=== PATIENT | female | born 1940 | race Caucasian/White ===

== ENCOUNTER 2020-02-17 17:32 | Inpatient (IN) | payer MEDICARE, OTHER ==
[~2020-02-17] VITALS: Ht 157.5 cm; Wt 74.8 kg
[2020-02-17] MEDS ORDERED: TIMO5DRO35 EACHEYE (18:55)
[2020-02-17] MEDS ORDERED: UNK CHOLESTEROL PO (18:55)
[2020-02-17] MEDS ORDERED: LOSA25TA27 PO (18:55)
[2020-02-17] MEDS ORDERED: GABA300C PO (18:55)
[2020-02-17] MEDS ORDERED: ZOLPIDEM TARTRATE 5 MG TABLET PO PRN (22:00)
[2020-02-17] MEDS ORDERED: MAGNESIUM HYDROXIDE 30 ML UDC PO PRN (22:00)
--- NOTE | 2020-02-17 22:00 | NUR ---
GPS AIRLINE CUSTOMER SERVICE AGENT NOTES: ADMITTED A 79YO BULGARIAN SPEAKING FEMALE FROM THE ED ON 5150 HOLD FOR GRAVE DISABILITY. PATIENT CAME FROM A PREVIOUS [facility]- [employer] PRIOR TO THIS ED VISIT. PER HOLD, PATIENT REFUSED TO LEAVE MD OFFICE, AND THAT SHE WAS MAKING BIZARRE DELUSIONAL STATEMENTS. PATIENT IS UNDER THE CARE OF DR. CHOW, AND ANN URBINA FOR PSYCH AND MEDICAL DOCTORS RESPECTIVELY. UPON FACE TO FACE ASSESSMENT, PATIENT PRESENTS ALERT AND ORIENTED X3,,DENIES ANY PAIN, NO RESPIRATORY DISTRESS. PATIENT REFUSED HOWEVER TO DO THOROUGH SKIN ASSESSMENT, SHE ALSO REFUSED FACE PHOTO. WHEN ASKED TO STAY IN BED, PATIENT REFUSED TO LET GO OF HER OWN WALKER. PATIENT THEN INFORMED OF THE UNIT RULES AND POLICIES REGARDING THE PSYCH UNIT. PATIENT PROVIDED WITH GUIDE TO PRESCRIPTIONS MEDICATIONS AND PATIENT'S,RIGHTS HANDBOOK. CARE PLAN INITIATED. Q15 MIN CHECKS STARTED. VITAL SIGNS TAKEN AND RECORDED. PATIENT'S ADMISSION ASSESSMENTS WERE VERY LIMITED PATIENT WAS VERY UNCOOPERATIVE WITH STAFF. PATIENT EXPLAINED OF PROTOCOLS AND PROCEDURE, PATIENT RESPONDS RIGHT AWAY WITH "NO,NO,NO!" BELONGINGS AND CONTRABAND CHECKED. WILL MONITOR PATIENT FOR MOOD SAFETY AND BEHAVIOR.
[2020-02-17] MEDS ORDERED: IBUP-23 PO (22:07)
[2020-02-17] MEDS ORDERED: NITR100C6 PO (22:09)
[2020-02-17] MEDS ORDERED: OLAN2.5T3 PO (22:11)
[2020-02-17] MEDS ORDERED: BLOOD SUGAR DIAGNOSTIC 1 EACH STRIP IN ONE (23:00)
--- NOTE | 2020-02-17 23:29 | NUR ---
GPS RN NOTE, PATIENT NEEDS A MEDICATION RECONCILIATION APPROVED. PAGED [facility] AND INFORMED DR ALIDA CABRAL OF FINDINGS. DR ALIDA CABRAL STATED, " MY INTERNET IS NOT WORKING IF IT STARTS WORKING AGAIN I WILL APPROVE THE MEDICATION RECONCILIATION ". ALL ORDERS NOTED AND CARRIED OUT WILL CONTINUE TO MONITOR THIS PATIENT WITH THE HELP OF STAFF.
[2020-02-18] MEDS: ACETAMINOPHEN 325 MG TABLET PO PRN ×3 (04:02→20:31)
[2020-02-18] MEDS: LORAZEPAM 1 MG TABLET PO PRN ×2 (04:08→12:57)
--- NOTE | 2020-02-18 04:13 | NUR ---
NURSES NOTES: PATIENT COMPLAINED OF RIGHT KNEE PAIN PAIN, REQUESTED FOR TYLENOL MEDICATION- TYLENOL 65O MG GIVEN PO ORDERED. PATIENT ALSO COMPLAINED OF BEING ANXIOUS. ATIVAN 1 MG GIVEN ORALLY PRN ORDER. WILL MONITOR PATIENT'S PAIN AND THE EFFICACY OF MEDICATION WELL.
[2020-02-18 07:07] LABS: BASOPHILS % (AUTO) 0.6 % (0.0-2.0); EOSINOPHILS % (AUTO) 1.1 % (0.0-6.0); HEMATOCRIT 39 % (33-45); HEMOGLOBIN 12.8 g/dL (11.5-14.8); LYMPHOCYTES # (AUTO) 1.4 /CMM (0.8-4.8); LYMPHOCYTES % (AUTO) 20.4 % (20.0-44.0); MEAN CORPUSCULAR HGB CONC 33 g/dl (31.0-36.0); MEAN CORPUSCULAR VOLUME 90 fL (82-100); MONOCYTES # (AUTO) 0.7 /CMM (0.1-1.30); MONOCYTES % (AUTO) 9.3 % (2.0-12.0); NEUTROPHILS # (AUTO) 4.8 /CMM (1.8-8.9); NEUTROPHILS % (AUTO) 68.6 % (43.0-81.0); PLATELET COUNT (AUTO) 373 /CMM (150-450); RED BLOOD CELL COUNT(AUTO) 4.34 MIL/uL (4.0-5.2)
[2020-02-18 08:00] VITALS: BP 155/85
[2020-02-18 08:19] LABS: BILIRUBIN,TOTAL 0.3 mg/dL (0.2-1.0); CALCIUM, SERUM 8.7 mg/dL (8.5-10.1); CREATININE 0.7 mg/dL (0.6-1.3); TOTAL PROTEIN, SERUM 6.8 g/dL (6.4-8.2)
[2020-02-18 16:00] VITALS: BP 154/96
[2020-02-18] MEDS: TIMOLOL 0.5% SOLN OPHTH 5 ML BOTTLE EACHEYE SCH (17:00)
[2020-02-18 20:14] VITALS: BP 141/90
--- NOTE | 2020-02-18 20:33 | NUR ---
GPS RN NOTE: PAIN PT. C/O OF EAR PAIN. ADMINISTERED TYLENOL 650 MG PO PRN ORDERED. WILL CONTINUE TO MONITOR FOR SAFETY AND BEHAVIOR.
[2020-02-18] MEDS: risperiDONE 0.25 MG TABLET PO SCH (21:20)
[2020-02-19] MEDS: LORAZEPAM 1 MG TABLET PO PRN (04:39)
--- NOTE | 2020-02-19 04:42 | NUR ---
GPS RN NOTE: ANXIETY PT. C/O OF BEING ANXIOUS. ADMINISTERED ATIVAN 1MG PO PRN ORDERED. WILL CONTINUE TO MONITOR FOR SAFETY AND BEHAVIOR.
[2020-02-19 08:00] VITALS: BP 145/95
[2020-02-19] MEDS: risperiDONE 0.25 MG TABLET PO SCH ×3 (08:40→21:24)
[2020-02-19] MEDS: LOSARTAN POTASSIUM 25 MG TABLET PO SCH (08:40)
[2020-02-19] MEDS: TIMOLOL 0.5% SOLN OPHTH 5 ML BOTTLE EACHEYE SCH ×2 (08:41→16:57)
[2020-02-19 16:00] VITALS: BP 111/66
[2020-02-19 19:49] VITALS: BP 121/80
[2020-02-19 20:31] VITALS: BP 121/60
[2020-02-19] MEDS: ACETAMINOPHEN 325 MG TABLET PO PRN (21:24)
--- NOTE | 2020-02-20 05:01 | NUR ---
CLOSING NOTES: Slept 8 hours tonight. Verbalizes her needs. C/O pain right knee requested tylenol and this was effective for relief. She commented that the Doctors don't help her with thw right knee pain. She is calm and quiet. She refused Reseradol last night
[2020-02-20 08:00] VITALS: BP 125/82
[2020-02-20] MEDS: LOSARTAN POTASSIUM 25 MG TABLET PO SCH (08:46)
[2020-02-20] MEDS: TIMOLOL 0.5% SOLN OPHTH 5 ML BOTTLE EACHEYE SCH ×2 (08:46→17:13)
[2020-02-20] MEDS: risperiDONE 0.25 MG TABLET PO SCH (08:47)
--- NOTE | 2020-02-20 08:48 | NUR ---
RN NOTE: MEDICATION REFUSAL PT REFUSED AM RISPERDAL. EDUCATED PT RE IMPORTANCE OF MEDICATION COMPLIANCE. PT CONT'D TO REFUSE X 3.
--- NOTE | 2020-02-20 12:06 | NUR ---
INITIAL DISCHARGE PLAN: Pt wishes to return home to [address] [place] [address] [address] [place] SW is unable to confirm if pt is able to return. SW will help form a safe and proper discharge in collaboration with .
[2020-02-20] MEDS: ACETAMINOPHEN 325 MG TABLET PO PRN (15:13)
--- NOTE | 2020-02-20 15:13 | NUR ---
RN NOTE: PAIN PT C/O 08/01 HEADACHE. REQUESTING TYLENOL 650 MG PO PRN.
--- NOTE | 2020-02-20 15:52 | NUR ---
INDIVIDUAL INTERVENTION: SW met with pt at bedside to discuss her medication compliance. Pts insight and judgement is impaired and does not have insight into her mental illness. Pt refuses to take her medication until she is given pain medication. Pt is paranoid and delusional and requires constant redirection.
[2020-02-20 16:00] VITALS: BP 118/66
[2020-02-20 19:41] VITALS: BP 139/63
[2020-02-20] MEDS: QUETIAPINE FUMARATE 25 MG TABLET PO SCH (21:14)
[2020-02-20] MEDS: MAG HYDROX/AL HYDROX/SIMETH 30 ML UDC PO PRN (21:29)
[2020-02-20 22:30] VITALS: BP 130/68
--- NOTE | 2020-02-21 06:03 | NUR ---
GPS RN NOTES: PT. RESTING IN HER ROOM, NO S/S OF DISTRESS NOTED . PT. CALM UNCOOPERTIVE, PARANOID ,DISORGNIZED NEEDY DENENDING, NOT FOLLOWING ANY REDIRECTIONS NO CHANGE OF CONDITION NOTED , ALL CARE NEEDS MET ANTICIPATED. WILL CONTINUE TO MONITOR FOR SAFETY BEHAVIOR, AND ENDORSE TO AM SHIFT FOR CONTINUITY OF CARE.
[2020-02-21] MEDS: ACETAMINOPHEN 325 MG TABLET PO PRN ×2 (06:24→22:57)
[2020-02-21] MEDS: LOSARTAN POTASSIUM 25 MG TABLET PO SCH (08:37)
[2020-02-21 09:07] VITALS: BP 100/67
[2020-02-21] MEDS: TIMOLOL 0.5% SOLN OPHTH 5 ML BOTTLE EACHEYE SCH ×2 (09:13→16:37)
--- NOTE | 2020-02-21 11:02 | NUR ---
FAMILY CONTACT: SW contacted pts daughter Patricia ([phone]) for discharge planning and left a voicemail for callback.
--- NOTE | 2020-02-21 12:10 | NUR ---
FAMILY CONTACT: SW received a call from pts daughter Patricia ([phone]) who confirmed pts discharge plan back home and stated she would be available to pick pt up once stable or discharge.
[2020-02-21 16:00] VITALS: BP 138/73
[2020-02-21 19:32] VITALS: BP 161/74
[2020-02-21] MEDS: QUETIAPINE FUMARATE 25 MG TABLET PO SCH (21:21)
--- NOTE | 2020-02-21 21:49 | NUR ---
GPS RN NOTES: AT 0 PT REPORTED SHE HAS NOT HAD A BOWEL MOVEMENT FOR A DAY AND REQUESTED FOR MOM. MOM 1CUP/30ML GIVEN PO PRN ORDERED. WILL CONTINUE TO MONITOR.
--- NOTE | 2020-02-22 06:38 | NUR ---
GPS RN CLOSING NOTES: PT AWAKE, ALERT AND ORIENTED X2. PT SLEPT FOR 3HRS THIS SHIFT. NO S/S OF DISTRESS. RESPIRATION EVEN AND UNLABORED WITH EQUAL RISE AND FALL OF THE CHEST. ALL PT CARE NEEDS MET ANTICIPATED. WILL CONTINUE TO MONITOR AND ENDORSE TO AM SHIFT.
[2020-02-22 08:00] VITALS: BP 150/98
--- NOTE | 2020-02-22 08:00 | NUR ---
CRYING AND C/OF MOUTH AND CHEST PAIN,DOES HAVE HX OF GERD.WALKING ABOUT IN RM.
[2020-02-22] MEDS: TIMOLOL 0.5% SOLN OPHTH 5 ML BOTTLE EACHEYE SCH ×2 (08:10→17:00)
[2020-02-22] MEDS: ACETAMINOPHEN 325 MG TABLET PO PRN (08:10)
[2020-02-22] MEDS: LOSARTAN POTASSIUM 25 MG TABLET PO SCH (08:10)
[2020-02-22] MEDS: MAG HYDROX/AL HYDROX/SIMETH 30 ML UDC PO PRN (08:11)
--- NOTE | 2020-02-22 08:11 | NUR ---
GIVEN MAALOX,TYLENOL FOR DISCOMFORT.
--- NOTE | 2020-02-22 08:30 | NUR ---
ekg ordered,dr. aparicio aware of pt. status and the fact that ekg ordered.
--- NOTE | 2020-02-22 09:30 | NUR ---
copy of ekg sent to dr. aparicio.
[2020-02-22] MEDS: GABAPENTIN 100 MG CAPSULE PO SCH ×3 (11:44→18:07)
--- NOTE | 2020-02-22 14:15 | NUR ---
crying out and requesting ativan,informed ativan not ordered,call out to dr. segura.
[2020-02-22 16:00] VITALS: BP 155/88
--- NOTE | 2020-02-22 18:30 | NUR ---
VERY NEEDY AND OUT AT DESK WITH REQUESTS ABRAHAM.
[2020-02-22 19:58] VITALS: BP 121/68
[2020-02-22] MEDS: QUETIAPINE FUMARATE 25 MG TABLET PO SCH (21:09)
[2020-02-23 08:00] VITALS: BP 147/82
[2020-02-23] MEDS: GABAPENTIN 100 MG CAPSULE PO SCH ×3 (08:07→16:53)
[2020-02-23] MEDS: LOSARTAN POTASSIUM 25 MG TABLET PO SCH (08:07)
[2020-02-23] MEDS: TIMOLOL 0.5% SOLN OPHTH 5 ML BOTTLE EACHEYE SCH ×2 (08:08→16:53)
--- NOTE | 2020-02-23 11:00 | NUR ---
INDIVIDUAL INTERVENTION WITH MD: ALMA and MD met with pt to discuss current symptoms and discharge plan. Pt presents disorganized, delusional, and paranoia and focused on pain medication. Pt was unable to properly answer MD questions due to her paranoia and fixed delusional thoughts.
--- NOTE | 2020-02-23 11:23 | NUR ---
FAMILY CONTACT: ALMA contacted pts daughter Patricia ([phone]) to inform her pt will be discharged on Thursday02/25/20. Daughter agrees with discharge plan and stated she will be picking pt up and transporting home at 11:00am.
[2020-02-23] MEDS: LORAZEPAM 1 MG TABLET PO PRN ×2 (12:08→21:22)
[2020-02-23 16:00] VITALS: BP 124/69
[2020-02-23 20:01] VITALS: BP 130/70
[2020-02-23] MEDS: GUAIFENESIN/D-METHORPHAN HB 5 ML UDC PO PRN (20:42)
[2020-02-23] MEDS: QUETIAPINE FUMARATE 25 MG TABLET PO SCH (22:22)
[2020-02-24 08:00] VITALS: BP 126/79
--- NOTE | 2020-02-24 08:30 | NUR ---
INDIVIDUAL INTERVENTION WITH MD: ALMA and met with pt to discuss current symptoms and discharge plan. Pt presents disorganized, delusional, and paranoia and focused on having an infection all over her body. Pt was rambling and refused to be redirected. MD cancelled pts discharge for tomorrow.
[2020-02-24] MEDS: TIMOLOL 0.5% SOLN OPHTH 5 ML BOTTLE EACHEYE SCH ×2 (08:42→16:50)
[2020-02-24] MEDS: GABAPENTIN 100 MG CAPSULE PO SCH ×3 (08:43→16:49)
[2020-02-24] MEDS: LOSARTAN POTASSIUM 25 MG TABLET PO SCH (08:43)
--- NOTE | 2020-02-24 09:09 | NUR ---
FAMILY CONTACT: SW contacted pts daughter Patricia ([phone]) to inform her pts discharge has been cancelled due to pt remaining paranoid and delusional. SW informed her that MD increased pts antipsychotic. Daughter agreed with treatment plan.
[2020-02-24] MEDS: LORAZEPAM 1 MG TABLET PO PRN ×2 (09:15→17:33)
--- NOTE | 2020-02-24 09:19 | NUR ---
ALMA COORDINATION OF CARE: ALMA contacted [facility] Address: [address] [place] [address] and spoke with the inkjet operator who stated they currently are completely booked and will not have appointments until next month. ALMA scheduled an appointment for March at 11:00am.
--- NOTE | 2020-02-24 09:24 | NUR ---
ALMA COORDINATION OF CARE: SW contacted [facility] Address: [address] [place] [address] and scheduled an appointment for pt on Saturday March 14, 2020.
--- NOTE | 2020-02-24 13:43 | NUR ---
GROUP THERAPY: SW encouraged pt to attend group therapy, pt is unable to participate due to pt presenting disorganized, delusional, and paranoid and focused on having an infection all over her body. Pt was rambling and refused to be redirected
--- NOTE | 2020-02-24 15:31 | NUR ---
GPS/RN ATIVAN 1MG PO ADMINISTERED FOR ANXIETY. DR CHOW AWARE THAT PT HAS ANXIETY EPISODE Addendum: 02/24/20 at 1533 by ABIGAIL EDWARDS RN THIS THIS THE NOTE FOR 0915AM
[2020-02-24 16:09] VITALS: BP 134/80
[2020-02-24] MEDS: GUAIFENESIN/D-METHORPHAN HB 5 ML UDC PO PRN (19:46)
[2020-02-24 20:06] VITALS: BP 138/85
[2020-02-24] MEDS: QUETIAPINE FUMARATE 25 MG TABLET PO SCH (21:14)
[2020-02-25 08:00] VITALS: BP 139/67
[2020-02-25] MEDS: GABAPENTIN 100 MG CAPSULE PO SCH ×3 (08:39→17:23)
[2020-02-25] MEDS: TIMOLOL 0.5% SOLN OPHTH 5 ML BOTTLE EACHEYE SCH ×2 (08:40→17:23)
[2020-02-25] MEDS: LOSARTAN POTASSIUM 25 MG TABLET PO SCH (08:40)
[2020-02-25] MEDS: LORAZEPAM 1 MG TABLET PO PRN ×2 (10:22→19:48)
[2020-02-25] MEDS: ACETAMINOPHEN 325 MG TABLET PO PRN ×2 (10:22→16:48)
[2020-02-25] MEDS: MAG HYDROX/AL HYDROX/SIMETH 30 ML UDC PO PRN ×2 (10:22→16:47)
--- NOTE | 2020-02-25 10:34 | NUR ---
given maalox,ativan and tylenol for nervousness and pain.
--- NOTE | 2020-02-25 11:08 | NUR ---
Dr. Ring made rounds and ordered Ibuprofen 400 mg q6hr prn for pain. [facility] unable to place the order due pt. is allergy to Celecoxib. Called the doctor and left a message and awaiting for the call back.
[2020-02-25 16:00] VITALS: BP 140/70
[2020-02-25] MEDS: GUAIFENESIN/D-METHORPHAN HB 5 ML UDC PO PRN (16:47)
--- NOTE | 2020-02-25 17:00 | NUR ---
C/O COUGH,PAIN AND INDIGESTION.TYLENOL.MAALOX AND ROBITUSSIN GIVEN.
--- NOTE | 2020-02-25 19:49 | NUR ---
RN NOTES : ANXIETY PT. C/O FEELING ANXIOUS PARANOID, PACING IN ROOM ,ASKING FOR ATIVAN , ATIVAN 1 MG PO PRN GIVEN PER PT. REQUEST, WILL CONTINUE TO MONITOR.
[2020-02-25 20:06] VITALS: BP 147/94
[2020-02-25] MEDS: QUETIAPINE FUMARATE 25 MG TABLET PO SCH (21:19)
[2020-02-26] MEDS: ACETAMINOPHEN 325 MG TABLET PO PRN ×2 (05:01→23:04)
[2020-02-26] MEDS: LORAZEPAM 1 MG TABLET PO PRN ×3 (06:29→22:40)
--- NOTE | 2020-02-26 06:31 | NUR ---
RN NOTES : ANXIETY PT. C/O FEELING ANXIOUS PARANOID, NON REDIRECTABLE, ASKING FOR ATIVAN , ATIVAN 1 MG PO PRN GIVEN PER PT. REQUEST, WILL CONTINUE TO MONITOR.
--- NOTE | 2020-02-26 06:52 | NUR ---
GPS RN NOTES: PT. RESTING IN HER ROOM, NO S/S OF DISTRESS NOTED . PT. UNCOOPERTIVE, PARANOID ,DISORGNIZED NEEDY DENENDING , NO CHANGE OF CONDITION NOTED , ALL CARE NEEDS MET ANTICIPATED. WILL CONTINUE TO MONITOR FOR SAFETY BEHAVIOR, AND ENDORSE TO AM SHIFT FOR CONTINUITY OF CARE.
[2020-02-26 07:18] LABS: BASOPHILS % (AUTO) 0.4 % (0.0-2.0); EOSINOPHILS % (AUTO) 3.2 % (0.0-6.0); HEMATOCRIT 40 % (33-45); LYMPHOCYTES # (AUTO) 1.1 /CMM (0.8-4.8); LYMPHOCYTES % (AUTO) 20.7 % (20.0-44.0); MEAN CORPUSCULAR HGB CONC 33 g/dl (31.0-36.0); MEAN CORPUSCULAR VOLUME 90 fL (82-100); MONOCYTES # (AUTO) 0.5 /CMM (0.1-1.30); MONOCYTES % (AUTO) 9.3 % (2.0-12.0); NEUTROPHILS # (AUTO) 3.5 /CMM (1.8-8.9); NEUTROPHILS % (AUTO) 66.4 % (43.0-81.0); PLATELET COUNT (AUTO) 338 /CMM (150-450); RED BLOOD CELL COUNT(AUTO) 4.42 MIL/uL (4.0-5.2); WHITE BLOOD COUNT (AUTO) 5.3 K/uL (4.3-11.0)
[2020-02-26 08:00] VITALS: BP 148/90
[2020-02-26] MEDS: GABAPENTIN 100 MG CAPSULE PO SCH ×3 (08:07→16:55)
[2020-02-26] MEDS: TIMOLOL 0.5% SOLN OPHTH 5 ML BOTTLE EACHEYE SCH ×2 (08:07→17:02)
[2020-02-26] MEDS: LOSARTAN POTASSIUM 25 MG TABLET PO SCH (08:09)
[2020-02-26 08:50] LABS: BILIRUBIN,TOTAL 0.3 mg/dL (0.2-1.0); CREATININE 0.8 mg/dL (0.6-1.3); MAGNESIUM 2.4 mg/dL (1.8-2.4); TOTAL PROTEIN, SERUM 6.7 g/dL (6.4-8.2)
--- NOTE | 2020-02-26 14:40 | NUR ---
GPS/RN ATIVAN 1MG PO GIVEN PER DR KERNS ORDER
[2020-02-26 16:00] VITALS: BP 137/80
[2020-02-26 20:37] VITALS: BP 130/69
[2020-02-26] MEDS: QUETIAPINE FUMARATE 25 MG TABLET PO SCH (21:32)
--- NOTE | 2020-02-26 22:41 | NUR ---
Pt c/o anxiety and insomnia. Requesting Ativan PRN. Least restrictive measures ineffective. Ativan 1 mg po prn given as ordered. Will continue to monitor.
--- NOTE | 2020-02-26 23:05 | NUR ---
Pt c/o of generalized body pain 08/01. Tylenol 650 mg po prn given as ordered. Will continue to monitor.
--- NOTE | 2020-02-26 23:41 | NUR ---
Ativan effective. Post 1 hour pt asleep in bed easy to arouse. Will continue to monitor.
--- NOTE | 2020-02-27 00:06 | NUR ---
Post 1 hour Tylenol effective. VA 0/10. Pt asleep in bed easy to arouse. Will continue to monitor.
[2020-02-27] MEDS: ACETAMINOPHEN 325 MG TABLET PO PRN (05:14)
--- NOTE | 2020-02-27 05:19 | NUR ---
Pt c/o generalized body pain 08/01. Tylenol 650 mg po prn given as ordered. Will continue to monitor.
--- NOTE | 2020-02-27 06:23 | NUR ---
Post 1 hr tylenol effective. Pt asleep easy to arouse. DC 0/10. Will continue to monitor.
[2020-02-27 08:00] VITALS: BP 111/92
[2020-02-27] MEDS: GABAPENTIN 100 MG CAPSULE PO SCH ×3 (08:55→17:46)
[2020-02-27] MEDS: LOSARTAN POTASSIUM 25 MG TABLET PO SCH (08:56)
[2020-02-27] MEDS: TIMOLOL 0.5% SOLN OPHTH 5 ML BOTTLE EACHEYE SCH ×2 (08:56→17:51)
--- NOTE | 2020-02-27 10:11 | NUR ---
This SW recieved a voicemail from patient's son. Patient's son did not leave name but left call back number . This SW informed SW Luz about voicemail and played voice message to her. SW called patient's son to provide name but was unable to speak to him, SW left a message.
--- NOTE | 2020-02-27 12:47 | NUR ---
Patient's Son Barry gave this SW a call back. This SW informed him that ALMA Escobar would speak with him regarding mother's current developments.
--- NOTE | 2020-02-27 14:32 | NUR ---
ALMA FAMILY CONTACT: ALMA received information from Vanessa MARQUEZ regarding patient's Son Barry ([phone]) wanting to speak to the social sciences department chair. This policy writer called and left a voicemail for Barry to return this phone call.
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
[2020-02-27 16:00] VITALS: BP 113/73
[2020-02-27 19:39] VITALS: BP 128/76
[2020-02-27] MEDS: QUETIAPINE FUMARATE 100 MG TABLET PO SCH (21:09)
[2020-02-28 08:17] VITALS: BP 139/94
[2020-02-28] MEDS: LOSARTAN POTASSIUM 25 MG TABLET PO SCH (08:39)
[2020-02-28] MEDS: GABAPENTIN 100 MG CAPSULE PO SCH ×3 (08:39→17:16)
[2020-02-28] MEDS: TIMOLOL 0.5% SOLN OPHTH 5 ML BOTTLE EACHEYE SCH ×2 (08:39→17:17)
[2020-02-28 16:00] VITALS: BP 130/82
[2020-02-28 19:33] VITALS: BP 119/71
[2020-02-28] MEDS: QUETIAPINE FUMARATE 100 MG TABLET PO SCH (21:47)
[2020-02-28] MEDS: ACETAMINOPHEN 325 MG TABLET PO PRN (21:47)
--- NOTE | 2020-02-28 21:54 | NUR ---
GPS RN NOTES: PT COMPLAINED OF GENERALIZED BODY PAIN. TYLENOL 325MG 2TABS GIVEN PO PRN ORDERED AT 7. WILL CONTINUE TO MONITOR.
--- NOTE | 2020-02-29 06:34 | NUR ---
GPS RN CLOSING NOTES: PT AWAKE A/O. AMBULATING IN ROOM. MED COMPLIANT AND SLEPT FOR 5 HR THIS SHIFT. NO S/S OF DISTRESS AT THIS TIME. RESPIRATION EVEN AND UNLABORED WITH EQUAL RISE AND FALL OF THE CHEST ON ROOM AIR. ALL PATIENT CARE NEEDS MET ANTICIPATED. WILL CONTINUE TO MONITOR AND ENDORSE TO AM SHIFT.
[2020-02-29 08:00] VITALS: BP 153/75
[2020-02-29] MEDS: GABAPENTIN 100 MG CAPSULE PO SCH (08:15)
[2020-02-29 08:16] VITALS: BP 153/75
[2020-02-29] MEDS: LOSARTAN POTASSIUM 25 MG TABLET PO SCH (08:16)
[2020-02-29] MEDS: TIMOLOL 0.5% SOLN OPHTH 5 ML BOTTLE EACHEYE SCH (08:17)
--- NOTE | 2020-02-29 08:32 | NUR ---
DISCHARGE NOTE: Patient will be discharged today back home [address] [place] [address]. Patients daughter Patricia ([phone]) is aware and agreeable with discharge plan and will be providing transportation for the patient back home at 10:00AM. Patient presents alert and oriented times 4. Patient presents with appropriate mood and euthymic affect. Patient denies suicidal or homicidal ideation. Patient will be following up with a psychiatrist assigned at [facility] Address: [address] [place] [address] appointment scheduled for March at 11:00am. Patient will be following up with a primary physician at [facility] Address: [address] [place] [address] appointment scheduled for Saturday March 14, 2020.
--- NOTE | 2020-02-29 10:42 | NUR ---
GPS REGIONAL MARKETING MANAGER NOTE: PATIENT DISCHARGED TODAY AT 1030 TO HER HOUSE [address] [place] [id number] PATIENTS DAUGHTER CHRIS AGREE AND WILL PICK HER UT PATIENT LEFT THE UNIT WC ACCOMPANIED BY 1 STAFF TO THE MAIN LOBBY AND PICKED UP BY HER DAUGHTER CHRIS . PATIENT IS IN STABLE CONDITION. VSS. NO ACUTE DISTRESS NOTED. NO COMPLAINTS. COMPLIANT WITH MEDICATION MANAGEMENT. COOPERATIVE WITH PLAN OF CARE. PSYCHIATRIC TREATMENT PLANS MET. MEDICAL TREATMENT PLANS DEFERRED FOR CONTINUAL MONITORING. DENIES SI/HI/VAH AT THE TIME OF DISCHARGE. PATIENT REFUSED SKIN ASSESSMENT VSS . EDUCATED PATIENT ABOUT AFTERCARE WITH COPY PROVIDED. RETURNED PERSONAL BELONGINGS TO PATIENT. MEDICATIONS RECONCILED WITH ALONG WITH PSYCHIATRIC DISCHARGE ORDERS. DISCHARGE PAPERWORK SIGNED. FOR FOLLOW UP WITH PSYCHIATRIST AND IS ANALYST WITHIN 1 WEEK.
== END 2020-02-29 10:30 | disposition home or self-care (01) | DRG 885 ==
LOC: EDBD 17:32 → GPS 17:32
PROVIDERS: ADMIT Psychiatry & Neurology Psychiatry; ATTEND Family Medicine
DX: F31.5 Bipolar disorder, current episode depressed, severe, with psychotic features (principal); E44.1 Mild protein-calorie malnutrition; E66.9 Obesity, unspecified; I10 Essential (primary) hypertension; Z68.30 Body mass index [BMI] 30.0-30.9, adult; Z83.3 Family history of diabetes mellitus; Z73.6 Limitation of activities due to disability; R79.89 Other specified abnormal findings of blood chemistry; R26.9 Unspecified abnormalities of gait and mobility; Z91.81 History of falling; F60.4 Histrionic personality disorder; F60.7 Dependent personality disorder; F19.10 Other psychoactive substance abuse, uncomplicated
CPT/HCPCS: 36415; 70450-TC; 80053-TC; 80061-TC; 83735-TC; 84443-TC; 85025-TC; 87081-TC; 97116-TC; 97530-TC